=== PATIENT | male | born 1960 | race Two or more races ===

== ENCOUNTER 2018-09-12 18:43 | Emergency (ER) | payer MEDICAID ==
[~2018-09-12] VITALS: Ht 170.2 cm; Wt 77.1 kg
--- NOTE | 2018-09-12 18:45 | NUR ---
ED Nurse Note: Patient walked into ED c/o a skin tear located on the left leg, patient states that he scratched his leg yesterday, the skin tear is about 2 inches across. non draining however is open, patient denies any pain, patient is able to ambulate, patient is alert and oriented x4, ambulatory with a steady gait, VSS
[2018-09-12 18:46] VITALS: BP 219/123
[2018-09-12] MEDS ORDERED: LOSARTAN POTAS100 MG ORAL (18:57)
[2018-09-12] MEDS ORDERED: ASPIRIN-LOW81 MG ORAL (18:57)
[2018-09-12] MEDS ORDERED: METFORMIN HCL500 M4 ORAL (18:57)
[2018-09-12] MEDS ORDERED: JANUVIA25 MG ORAL (18:57)
[2018-09-12 22:00] VITALS: BP 180/110
--- NOTE | 2018-09-12 22:00 | NUR ---
ER DISCHARGE NOTE: Patient is cleared to be discharged per ERMD, pt is aox4, on room air, with stable vital signs. pt was given dc and prescription instructions, pt was able to verbalize understanding, pt id band removed without complications. pt is able to ambulate with steady gait. pt took all belongings. Dr. Lara states that it is ok for patient to leave with a blood presure of 180.
[2018-09-12] MEDS ORDERED: Clindamycin 150mg cap ORAL ONE (22:15)
[2018-09-12] MEDS ORDERED: CLINDAMYCIN HC300 MG ORAL (22:16)
--- NOTE | 2018-09-12 22:17 | Emergency Room Report ---
History of Present Illness General Chief Complaint: Wound Recheck/Suture Removal Source: Patient Present Illness HPI Presents with wound on the anterior portion of his left leg that started 2 days ago. Was surrounding redness. Minimal pain. No fever. No exacerbating or alleviating factor. Does not recall what type of trauma causes. No fever. Allergies: Coded Allergies: No Known Allergies (Unverified , 09/12/18) Patient History Past Medical History: DM Past Surgical History: none Pertinent Family History: DM Nursing Documentation-PMH Hx Hypertension: Yes Hx Diabetes: Yes Review of Systems All Other Systems: negative except mentioned in HPI Physical Exam Vital Signs Date Time Temp Pulse Resp B/P (MAP) Pulse Ox O2 Delivery O2 Flow Rate FiO2 09/12/18 18:43 97.3 116 19 219/123 97 Room Air General Appearance: well appearing, no apparent distress Head: normocephalic, atraumatic ENT: hearing grossly normal, normal voice Neck: full range of motion, supple Respiratory: no respiratory distress, speaking full sentences Musculoskeletal: normal inspection, no calf tenderness Neurologic: alert, normal gait Psychiatric: mood/affect normal Skin: no rash, other - quarter size lesion on anterior tibial surface with approx. [id number] erythema surrounding Medical Decision Making Diagnostic Impression: Primary Impression: Cellulitis ER Course Patient has no evidence of sepsis. The patient is afebrile. Patient is nontoxic-appearing. No other associated symptoms. I have reviewed the patient' s vital signs. And I feel the patient requires blood work at this time. We will start the patient on antibiotics and to have the patient return to emergency department if there is any change in symptoms or worsening symptoms Last Vital Signs Date Time Temp Pulse Resp B/P (MAP) Pulse Ox O2 Delivery O2 Flow Rate FiO2 09/12/18 18:46 97.3 97 19 219/123 97 Room Air Disposition: HOME, SELF-CARE Scripts Clindamycin Hcl (CLINDAMYCIN HCL) 300 Mg Capsule 300 MG ORAL THREE TIMES A DAY, #21 CAP Prov: RANDY NGO 09/12/18 Referrals: [facility],REFERRING (PCP) Patient Instructions: Cellulitis, [id number] RANDY NGO Sep 12, 2018 22:17
== END 2018-09-12 22:20 | disposition home or self-care (01) ==
LOC: EMR 19:27
DX: L03.116 Cellulitis of left lower limb (principal); E11.9 Type 2 diabetes mellitus without complications; I10 Essential (primary) hypertension
CPT/HCPCS: 99282